=== PATIENT | male | born 1960 | race Caucasian/White ===

== ENCOUNTER 2024-06-19 13:02 | Emergency (ER) | payer SELFPAY ==
[~2024-06-19] VITALS: Ht 172.7 cm; Wt 82.0 kg
[2024-06-19 13:08] VITALS: TEMP 98.5; O2SAT 99
[2024-06-19] MEDS ORDERED: CEFAZOLIN 1000MG PREMIX 50 ML IV ONE (13:30)
[2024-06-19] MEDS ORDERED: MORPHINE SULFATE 4 MG/ML INJ (FOR IV/IM USE) IV ONE (13:30)
[2024-06-19] MEDS ORDERED: TETANUS, DIPHTHERIA, PERTUSSIS VAC/PF 0.5ML (>10YR OLD) IM ONE (13:30)
[2024-06-19] MEDS ORDERED: LACTATED RINGERS 1,000 ML IV SCH (13:30)
[2024-06-19 14:30] LABS: BASOPHILS % 0.5 % (0.0-2.0); EOSINOPHILS % 1.7 % (0.0-5.0); HEMATOCRIT. 46.5 % (42.0-52.0); HEMOGLOBIN. 15.3 g/dL (14.0-18.0); LYMPHOCYTES % 15.1 % (20.0-50.0); MEAN CORPUSCULAR HGB CONC 32.9 g/dL (31.0-37.0); MEAN CORPUSCULAR VOLUME 91.2 fL (80.0-94.0); MEAN PLATELET VOLUME 9.7 fl (7.4-10.4); MONOCYTES % 6.2 % (2.0-8.0); NEUTROPHILS % 76.5 % (40.0-76.0); PLATELET 190 x1000/uL (130-400); RED BLOOD CELL COUNT 5.09 mill/uL (4.7-6.1); RED CELL DISTRIBUTION WIDTH 13.4 % (11.6-14.6); WHITE BLOOD COUNT 10.5 x1000/uL (4.5-11.0)
[2024-06-19 14:32] LABS: CHLORIDE 106 mEq/L (98-107); POTASSIUM 4.2 mEq/L (3.5-5.1); SODIUM 138 mEq/L (136-145)
[2024-06-19 14:33] LABS: CALCIUM 9.9 mg/dL (8.7-10.4); CARBON DIOXIDE 21 mEq/L (21-32)
[2024-06-19 14:38] LABS: CREATININE 1.1 mg/dL (0.6-1.3); GLUCOSE 124 mg/dL (70-105); UREA NITROGEN BLOOD 25 mg/dL (9-23)
[2024-06-19] MEDS: CEFAZOLIN 1000MG PREMIX 50 ML IV ONE (15:32)
[2024-06-19] MEDS: TETANUS, DIPHTHERIA, PERTUSSIS VAC/PF 0.5ML (>10YR OLD) IM ONE (16:00)
[2024-06-19 16:01] VITALS: BP 144/82; PULSE 90; RESP 18
[2024-06-19] MEDS: CEFAZOLIN 2000MG PREMIX 50 ML IV NR (16:01)
[2024-06-19] MEDS: MORPHINE SULFATE 4 MG/ML INJ (FOR IV/IM USE) IV NR (16:01)
[2024-06-19] MEDS ORDERED: BO1 TP (17:02)
[2024-06-19] MEDS: MINERAL OIL 30ML BOTTLE TOP ONE (17:31)
[2024-06-19] MEDS: BACITRACIN 14GM TUBE TOP ONE (17:31)
== END 2024-06-19 18:13 | disposition home or self-care (01) ==
LOC: ER 13:13
DX: T23.202A Burn of second degree of left hand, unspecified site, initial encounter (principal); T23.201A Burn of second degree of right hand, unspecified site, initial encounter; Z23 Encounter for immunization; X12.XXXA Contact with other hot fluids, initial encounter; Y93.89 Activity, other specified; Y92.89 Other specified places as the place of occurrence of the external cause; Y99.8 Other external cause status
CPT/HCPCS: 80048; 85025; 87040; 36415; 90715; 90471; 96365; 96375; 99284; J0690; J2270; Z7610 ×2; 96361